=== PATIENT | female | born 1965 | race African-American/Black ===

== ENCOUNTER 2022-04-24 00:12 | Emergency (ER) | payer SELFPAY ==
[~2022-04-24] VITALS: Ht 172.7 cm; Wt 71.0 kg
[2022-04-24] MEDS ORDERED: ACETAMINOPHEN 500MG TABLET PO ONE (02:45)
[2022-04-24 03:34] LABS: BASOPHILS % 0.6 % (0.0-2.0); EOSINOPHILS % 0.4 % (0.0-5.0); HEMATOCRIT. 40.5 % (36.0-48.0); HEMOGLOBIN. 13.4 g/dL (12.0-16.0); LYMPHOCYTES % 27.5 % (20.0-50.0); MEAN CORPUSCULAR HEMOGLOBIN 27.4 pg (28.0-32.0); MEAN CORPUSCULAR VOLUME 82.5 fL (81.0-99.0); MEAN PLATELET VOLUME 8.8 fl (7.4-10.4); MONOCYTES % 13.9 % (2.0-8.0); NEUTROPHILS % 57.6 % (40.0-76.0); PLATELET 286 x1000/uL (130-400); RED BLOOD CELL COUNT 4.91 mill/uL (4.2-5.4); RED CELL DISTRIBUTION WIDTH 15.1 % (11.6-14.6)
[2022-04-24 03:41] LABS: CHLORIDE 105 mEq/L (98-107)
[2022-04-24] MEDS ORDERED: ACETAMINOPHEN 500MG TABLET PO NR (03:45)
[2022-04-24] MEDS ORDERED: IBUP-2029 MT (03:56)
[2022-04-24 06:27] VITALS: BP 154/84
== END 2022-04-24 06:40 | disposition home or self-care (01) ==
LOC: ER 00:12
DX: R51.9 Headache, unspecified (principal); J45.909 Unspecified asthma, uncomplicated; Z98.51 Tubal ligation status; Z98.890 Other specified postprocedural states
CPT/HCPCS: 36415; 80053; 85025; 93005; 99285